=== PATIENT | female | born 1995 | race Caucasian/White ===

== ENCOUNTER 2018-07-24 04:48 | Emergency (ER) | payer MEDICAID ==
[~2018-07-24] VITALS: Ht 167.6 cm; Wt 56.8 kg
[~2018-07-24 04:48] MED LIST: CITA20TA24 PO; NO HOME MEDS
[2018-07-24 04:51] VITALS: BP 99/71
[2018-07-24] MEDS ORDERED: ONDA8TAB9 PO (05:00)
[2018-07-24] MEDS ORDERED: ibuprofen tablet 400 MG TABLET PO ONE (05:10)
== END 2018-07-24 05:36 | disposition home or self-care (01) ==
LOC: ER 04:49
DX: L25.9 Unspecified contact dermatitis, unspecified cause (principal); M79.644 Pain in right finger(s); M79.645 Pain in left finger(s); F32.9 Major depressive disorder, single episode, unspecified; F12.10 Cannabis abuse, uncomplicated; Z79.899 Other long term (current) drug therapy
CPT/HCPCS: 99283

== ENCOUNTER 2019-05-06 00:28 | Emergency (ER) | payer MEDICAID ==
[~2019-05-06] VITALS: Ht 167.6 cm; Wt 56.0 kg
[~2019-05-06 00:28] MED LIST changes: +ONDA8TAB9 PO
[2019-05-06 00:35] VITALS: BP 90/66
== END 2019-05-06 04:10 | disposition left against medical advice (07) ==
LOC: ER 00:29
DX: M79.672 Pain in left foot (principal); Z53.21 Procedure and treatment not carried out due to patient leaving prior to being seen by health care provider; W18.39XA Other fall on same level, initial encounter; Y93.89 Activity, other specified; Y92.89 Other specified places as the place of occurrence of the external cause; Y99.8 Other external cause status
CPT/HCPCS: 73630